=== PATIENT | female | born 2000 | race Caucasian/White ===

== ENCOUNTER 2018-05-28 15:47 | Emergency (ER) | payer BC ==
[~2018-05-28] VITALS: Ht 162.6 cm; Wt 109.1 kg
[2018-05-28 15:49] VITALS: Ht 162.6 cm; Wt 109.1 kg
[2018-05-28] MEDS ORDERED: VISTARIL25 MG PO (16:59)
[2018-05-28 17:19] VITALS: BP 114/72
== END 2018-05-28 17:20 | disposition home or self-care (01) ==
LOC: D.ER 15:47
DX: F41.9 Anxiety disorder, unspecified (principal); Z91.5 Personal history of self-harm; S51.812A Laceration without foreign body of left forearm, initial encounter; X78.9XXA Intentional self-harm by unspecified sharp object, initial encounter; Y93.89 Activity, other specified; Y92.019 Unspecified place in single-family (private) house as the place of occurrence of the external cause